=== PATIENT | male | born 1995 | race Caucasian/White ===

== ENCOUNTER 2018-10-22 09:21 | Emergency (ER) | payer OTHER ==
[2018-10-22 09:30] VITALS: BP 139/82
--- NOTE | 2018-10-22 09:46 | ER Document Report ---
HPI - HPI Patient complains to provider of: sore throat Time Seen by Provider: 10/22/18 09:33 Onset: Other - 2018 Onset/Duration: Persistent Quality of pain: Achy, Other - sore Severity: Severe Pain Level: 4 Context: Patient presents to the emergency department with complaints of sore throat severe pain will not go away with viral or bacterial meds. 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 Patient reports that since September 26 he has been treated by [facility] for this sore throat. He reports he has been tested for strep mono is currently prescribed and taking clindamycin Motrin and Magic mouthwash. He is also prescribed valacyclovir and Tylenol. Patient also was evaluated by [facility] yesterday and the following test CBC with differential CMP CRP ESR HIV HSV hepatitis and serum lactate with RPR were completed. He has also had a CT with IV contrast completed. The patient also has an appointment with a asset protection lead tomorrow and an ENT Sunday. He reports that it hurts to eat but his throat feels better when he drinks coke and coke floats. No complaints of fever vomiting diarrhea. Associated Symptoms: Sore throat Exacerbated by: Food Relieved by: Denies Similar symptoms previously: Yes Recently seen / treated by doctor: Yes - DERM Skin Color: Normal Past Medical History - General Information source: Patient - Social History Smoking Status: Current Some Day Smoker Cigarette use (# per day): Yes Frequency of alcohol use: None Drug Abuse: None Occupation: [employer] [place] Lives with: Other - [employer] [place] [employer] Family History: None Patient has suicidal ideation: No Patient has homicidal ideation: No - Medical History Medical History: Negative Renal/ Medical History: Denies: Hx Peritoneal Dialysis Past Surgical History: Reports: Hx Oral Surgery Vertical Provider Document - CONSTITUTIONAL Agree With Documented VS: Yes Exam Limitations: No Limitations General Appearance: WD/WN, No Apparent Distress - INFECTION CONTROL TRAVEL OUTSIDE OF THE [place] IN LAST 30 DAYS: No - HEENT HEENT: Atraumatic, Normocephalic, Pharyngeal Erythema - White patches - NECK Neck: Normal Inspection, Supple. negative: Lymphadenopathy-Left, Lymphadenopathy-Right - RESPIRATORY Respiratory: Breath Sounds Normal, No Respiratory Distress - CARDIOVASCULAR Cardiovascular: Regular Rate, Regular Rhythm - GI/ABDOMEN Gastrointestinal: Abdomen Non-Tender - MUSCULOSKELETAL/EXTREMETIES Musculoskeletal/Extremeties: GLORIA MACIAS - NEURO Level of Consciousness: Awake, Alert, Appropriate Motor/Sensory: No Motor Deficit - DERM Integumentary: Warm, Dry Course - Re-evaluation Re-evalutation: 10/22/18 14:31 Patient is talking in clear voice no trismus, good airway. patient was instructed on treatment he has received. I believe patient is safe to be discharged home to follow-up with dermatology and ENT. Patient is currently taking clindamycin and valacyclovir. Patient has received a CT with IV contrast which is negative according to patient. Patient was given a popsicle and able to eat it without problems here. - Vital Signs Vital signs: Temp Pulse Resp BP Pulse Ox 98.0 F 93 18 139/82 H 99 10/22/18 09:25 10/22/18 09:25 10/22/18 09:25 10/22/18 09:25 10/22/18 09:25 Discharge - Discharge Clinical Impression: Sore throat Condition: Stable Disposition: HOME, SELF-CARE Instructions: Sore Throat ([facility]) Additional Instructions: *You have been evaluated for a sore throat, pharyngitis *Take your medication as prescribed form [facility] *Warm salt water gargles and throat lozenges for comfort *drink fluids! *Do not let anyone drink/eat after you *Good hand washing *Follow-up with the asset protection lead tomorrow and ENT sunday as scheduled *Return to ED for worsening condition change, needs Monitor your blood pressure. Your blood pressure was elevated today. This may be because you were anxious, in pain or because you need medication. It is important to follow up with your primary care provider for full evaluation. Forms: Elevated Blood Pressure
== END 2018-10-22 09:49 | disposition home or self-care (01) ==
LOC: ER 09:21
DX: J02.9 Acute pharyngitis, unspecified (principal); F17.210 Nicotine dependence, cigarettes, uncomplicated
CPT/HCPCS: 99282